=== PATIENT | male | born 1970 | race African-American/Black ===

== ENCOUNTER 2016-06-27 22:17 | Emergency (ER) | payer OTHER ==
[~2016-06-27] VITALS: Ht 182.9 cm; Wt 81.6 kg
[2016-06-27 22:23] VITALS: BP 119/76
== END 2016-06-27 23:20 | disposition home or self-care (01) ==
LOC: ER 22:21
DX: L92.0 Granuloma annulare (principal)
CPT/HCPCS: 99283; A4606; Z7610

== ENCOUNTER 2018-10-17 13:48 | Emergency (ER) | payer OTHER ==
[~2018-10-17] VITALS: Ht 188 cm; Wt 93.9 kg
--- NOTE | 2018-10-17 13:57 | NUR ---
CAME IN FOR L SIDED CHEST PAIN SINCE YESTERDAY, NON RADIATING WORSENING W INSPIRATION. TO ER BED 10, HOOKED TO MONITOR, CHANGED TO GOWN, AWAITING MD LOPEZ.
--- NOTE | 2018-10-17 14:07 | NUR ---
FURNITURE SANDER AT BEDSIDE
--- NOTE | 2018-10-17 14:21 | NUR ---
DR ROCHA AT BEDSIDE
[2018-10-17] MEDS ORDERED: ASPIRIN 81 MG TAB.CHEW PO ONE (14:30)
[2018-10-17] MEDS ORDERED: ASPIRIN 81 MG TAB.CHEW ONE (14:39)
[2018-10-17 14:43] LABS: BASOPHILS % (AUTO) 0.6 % (0.0-2.0); EOSINOPHILS % (AUTO) 1.3 % (0.0-6.0); HEMATOCRIT 44 % (39-51); HEMOGLOBIN 15.6 g/dL (13.5-17.5); LYMPHOCYTES # (AUTO) 1.2 /CMM (0.8-4.8); LYMPHOCYTES % (AUTO) 13.5 % (20.0-44.0); MEAN CORPUSCULAR HGB CONC 36 g/dl (31.0-36.0); MEAN CORPUSCULAR VOLUME 87 fL (80-96); MONOCYTES # (AUTO) 0.8 /CMM (0.1-1.30); MONOCYTES % (AUTO) 9.1 % (2.0-12.0); NEUTROPHILS # (AUTO) 6.5 /CMM (1.8-8.9); NEUTROPHILS % (AUTO) 75.5 % (43.0-81.0); PLATELET COUNT (AUTO) 213 /CMM (150-450); RED BLOOD CELL COUNT(AUTO) 5.08 MIL/uL (4.5-6.0); WHITE BLOOD COUNT (AUTO) 8.6 K/uL (4.3-11.0)
--- NOTE | 2018-10-17 14:43 | NUR ---
PROJECTS MANAGER AT BEDSIDE
[2018-10-17 14:53] LABS: CALCIUM, SERUM 9.9 mg/dL (8.5-10.1); CARBON DIOXIDE 26 mmol/L (21-32); CHLORIDE 103 mmol/L (98-107); CREATININE 1.4 mg/dL (0.6-1.3); GLUCOSE 94 mg/dL (74-106); POTASSIUM 4.1 mmol/L (3.5-5.1); SODIUM SERUM 137 mmol/L (136-145); UREA NITROGEN, BLOOD 18 mg/dL (7-18)
[2018-10-17] MEDS ORDERED: IV NS 0.9% 1,000 ML BAG IV ONE (15:30)
[2018-10-17] MEDS ORDERED: IV NS 0.9% 250 ML IV ONE (15:38)
[2018-10-17] MEDS ORDERED: IOHEXOL-350 100 ML VIAL IV ONE (15:38)
[2018-10-17] MEDS ORDERED: CT SWABBABLE VALVE TRANS SET 1 EA INFUS.SET MC ONE (15:38)
--- NOTE | 2018-10-17 16:18 | NUR ---
PT WHEELED OUT VIA [email or web address] FOR CT SCAN
--- NOTE | 2018-10-17 18:06 | NUR ---
IV removed. Catheter intact and site benign. Pressure and 4x4 applied to site. No bleeding noted.Patient discharged to home in stable condition. Written and verbal after care instructions given. Patient verbalizes understanding of instruction.
[2018-10-17 18:07] VITALS: BP 132/97
== END 2018-10-17 18:07 | disposition home or self-care (01) ==
LOC: ER 13:52
DX: R07.89 Other chest pain (principal); I25.2 Old myocardial infarction
CPT/HCPCS: 36415; 71045; 71275; 80048; 84484 ×2; 85025; 85378; 93005 ×4; 99284; J7030 ×2; J7050; Q9967

== ENCOUNTER 2022-02-02 20:00 | Emergency (ER) | payer OTHER ==
[~2022-02-02] VITALS: Ht 182.9 cm; Wt 90.7 kg
[2022-02-02 21:19] VITALS: BP 126/87
--- NOTE | 2022-02-02 21:28 | NUR ---
Patient discharged to home in stable condition. Written and verbal after care instructions given. Patient verbalizes understanding of instruction. Pt ambulatory with a steady gait
[2022-02-02] MEDS ORDERED: ERYT3.5O9 RIGHTEYE (21:56)
[2022-02-02] MEDS ORDERED: OLOP5DRO22 RIGHTEYE (21:56)
[2022-02-02] MEDS ORDERED: DEXT15DR6 RIGHTEYE (21:56)
== END 2022-02-02 22:20 | disposition home or self-care (01) ==
LOC: ER 20:01
DX: H10.11 Acute atopic conjunctivitis, right eye (principal); Z79.899 Other long term (current) drug therapy

== ENCOUNTER 2024-01-02 12:21 | Emergency (ER) | payer OTHER ==
[~2024-01-02] VITALS: Ht 182.9 cm; Wt 93.0 kg
[~2024-01-02 12:21] MED LIST: DEXT15DR6 RIGHTEYE; ERYT3.5O9 RIGHTEYE; OLOP5DRO22 RIGHTEYE
[2024-01-02 12:22] VITALS: BP 133/90; TEMP 98.3; O2SAT 99
[2024-01-02 13:13] LABS: APPEARANCE,URINE CLEAR (CLEAR); BILIRUBIN,URINE NEGATIVE (NEGATIVE); BLOOD, URINE NEGATIVE Ery/uL (NEGATIVE); COLOR,URINE YELLOW (YELLOW); KETONES,URINE NEGATIVE (NEGATIVE); LEUKOCYTE ESTERASE ,URINE NEGATIVE (NEGATIVE); NITRITE, URINE NEGATIVE (NEGATIVE); PH,URINE 6.5 (5.0-8.0); PROTEIN,URINE NEGATIVE (NEGATIVE); UGLUCOSE NEGATIVE (NEGATIVE); UROBILINOGEN,URINE 0.2 EU/dL (0.2)
== END 2024-01-02 13:49 | disposition home or self-care (01) ==
LOC: ER 12:30
DX: R35.0 Frequency of micturition (principal); R39.15 Urgency of urination; Z87.2 Personal history of diseases of the skin and subcutaneous tissue
CPT/HCPCS: 87086-TC